=== PATIENT | female | born 1985 | race Caucasian/White ===

== ENCOUNTER 2016-11-04 14:27 | Emergency (ER) | payer OTHER ==
[~2016-11-04] VITALS: Ht 170.2 cm; Wt 75.0 kg
[2016-11-04 14:29] VITALS: BP 150/109; PULSE 83; RESP 16; TEMP 97.5; O2SAT 99
--- NOTE | 2016-11-04 14:34 | PD ---
HPI . 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 Patient tells me that in May she had a miscarriage and she was told this at another hospital in [place]. 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 She has a light period for the first week and describes it as spotting and then for the second week she has blood clots. She tells me she is going through 5-6 pads per day. Today she is currently bleeding and says she has been bleeding for the past 2 weeks now going on 3 weeks. She admits to some abdominal discomfort in her suprapubic area. She thinks that she may have products of conception retained within her and that this may be causing her bleeding. She thinks she may need a D&C. She has no other complaints. She denies any vaginal discharge other than blood products. She denies any fever or chills. PFSH Past Medical History ?: Unknown Social History Tobacco Use: Yes Allergies-Medications (Allergen,Severity, Reaction): Coded Allergies: No Known Allergies (Unverified , 11/04/16) Review of Systems General / Constitutional: No: Fever Eyes: No: Visual changes HENT: No: Headaches Cardiovascular: No: Chest Pain or Discomfort Respiratory: No: Shortness of Breath Gastrointestinal: Positive: Abdominal Pain (suprapubic ) Genitourinary: Positive: Vaginal Bleeding, No: Dysuria Musculoskeletal: No: Pain Skin: No Rash Neurologic: No: Weakness Psychiatric: No: Depression Endocrine: No: Polydipsia Hematologic/Lymphatic: No: Easy Bruising Physical Exam Narrative GENERAL: AAO x 3, no acute distress, Well-nourished, well-developed patient. SKIN: Warm and dry. No visible rashes or bruising. HEAD: Normocephalic and atraumatic. EYES: No scleral icterus. No injection or drainage. EOM intact, PERRLA ENT: No nasal drainage noted. Mucous membranes pink. Airway patent. NECK: Supple, trachea midline. No JVD. CARDIOVASCULAR: Regular rate and rhythm without murmurs, gallops, or rubs. RESPIRATORY: Breath sounds equal bilaterally. No accessory muscle use. No rhonchi or rales. GASTROINTESTINAL: Abdomen soft, non-tender, nondistended. EXTREMITIES: No cyanosis or edema. BACK: Nontender without obvious deformity. No CVA tenderness. 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 Data Data Last Documented VS Vital Signs Date Time Temp Pulse Resp B/P Pulse Ox O2 Delivery O2 Flow Rate FiO2 11/04/16 16:05 78 16 134/85 99 11/04/16 14:29 97.5 Orders Complete Blood Count With Diff (11/04/16 14:41) Basic Metabolic Panel (Bmp) (11/04/16 14:41) Ed Urine Pregnancytest Poc (11/04/16 14:41) Urinalysis - C+S If Indicated (11/04/16 15:34) Beta Hcg (Quant/Titer) (11/04/16 14:50) Us Pelvis (Ques Pr/Ect)W Trans (11/04/16 ) Labs Laboratory Tests Test 11/04/16 11/04/16 14:50 15:40 White Blood Count 13.2 TH/MM3 Red Blood Count 4.26 MIL/MM3 Hemoglobin 13.6 GM/DL Hematocrit 41.0 % Mean Corpuscular Volume 96.2 FL Mean Corpuscular Hemoglobin 31.8 PG Mean Corpuscular Hemoglobin 33.1 % Concent Red Cell Distribution Width 13.1 % Platelet Count 242 TH/MM3 Mean Platelet Volume 8.5 FL Neutrophils (%) (Auto) 71.2 % Lymphocytes (%) (Auto) 22.0 % Monocytes (%) (Auto) 5.9 % Eosinophils (%) (Auto) 0.6 % Basophils (%) (Auto) 0.3 % Neutrophils # (Auto) 9.4 TH/MM3 Lymphocytes # (Auto) 2.9 TH/MM3 Monocytes # (Auto) 0.8 TH/MM3 Eosinophils # (Auto) 0.1 TH/MM3 Basophils # (Auto) 0.0 TH/MM3 CBC Comment DIFF FINAL Differential Comment Sodium Level 142 MEQ/L Potassium Level 3.6 MEQ/L Chloride Level 109 MEQ/L Carbon Dioxide Level 26.2 MEQ/L Anion Gap 7 MEQ/L Blood Urea Nitrogen 14 MG/DL Creatinine 0.86 MG/DL Estimat Glomerular Filtration 78 ML/MIN Rate Random Glucose 109 MG/DL Calcium Level 8.4 MG/DL Human Chorionic Gonadotropin, 117 MIU/ML Quant Urine Color YELLOW Urine Turbidity CLEAR Urine pH 5.0 Urine Specific [place] 1.030 Urine Protein NEG mg/dL Urine Glucose (UA) NEG mg/dL Urine Ketones NEG mg/dL Urine Occult Blood NEG Urine Nitrite NEG Urine Bilirubin NEG Urine Urobilinogen LESS THAN 2.0 MG/DL Urine Leukocyte Esterase NEG Urine WBC 1 /hpf Urine Squamous Epithelial 2 /hpf Cells Urine Calcium Oxalate Crystals OCC /hpf Microscopic Urinalysis Comment CULT NOT INDICATED MDM Medical Decision Making Medical Screen Exam Complete: Yes Emergency Medical Condition: Yes Medical Record Reviewed: Yes Differential Diagnosis missed , threatened , ectopic , retained products of conception Narrative Course 31-year-old female here with complaints of intermittent vaginal bleeding consistently for the past several months. Labs have been drawn and bedside test was positive. I will go ahead and check a beta-hCG. Beta hCG was at 100+, therefore ultrasound was ordered. US appreciated and no evidence of gestational sac. It may be too early. Recommend f/u Beta HCG in 2 days. Last Impressions Pelvis Ultrasound 11/04/16 0000 Signed Impressions: Service Date/Time: Friday, November 04, 2016 17:44 - CONCLUSION: 1. No gestational sac identified in the uterus. Gestational sac may be too small to visualize on ultrasound. 2. 2.2 cm simple right ovarian cyst. Shailesh Isaacs MD Laboratory Tests Test 11/04/16 11/04/16 14:50 15:40 White Blood Count 13.2 TH/MM3 Red Blood Count 4.26 MIL/MM3 Hemoglobin 13.6 GM/DL Hematocrit 41.0 % Mean Corpuscular Volume 96.2 FL Mean Corpuscular Hemoglobin 31.8 PG Mean Corpuscular Hemoglobin 33.1 % Concent Red Cell Distribution Width 13.1 % Platelet Count 242 TH/MM3 Mean Platelet Volume 8.5 FL Neutrophils (%) (Auto) 71.2 % Lymphocytes (%) (Auto) 22.0 % Monocytes (%) (Auto) 5.9 % Eosinophils (%) (Auto) 0.6 % Basophils (%) (Auto) 0.3 % Neutrophils # (Auto) 9.4 TH/MM3 Lymphocytes # (Auto) 2.9 TH/MM3 Monocytes # (Auto) 0.8 TH/MM3 Eosinophils # (Auto) 0.1 TH/MM3 Basophils # (Auto) 0.0 TH/MM3 CBC Comment DIFF FINAL Differential Comment Sodium Level 142 MEQ/L Potassium Level 3.6 MEQ/L Chloride Level 109 MEQ/L Carbon Dioxide Level 26.2 MEQ/L Anion Gap 7 MEQ/L Blood Urea Nitrogen 14 MG/DL Creatinine 0.86 MG/DL Estimat Glomerular Filtration 78 ML/MIN Rate Random Glucose 109 MG/DL Calcium Level 8.4 MG/DL Human Chorionic Gonadotropin, 117 MIU/ML Quant Urine Color YELLOW Urine Turbidity CLEAR Urine pH 5.0 Urine Specific [place] 1.030 Urine Protein NEG mg/dL Urine Glucose (UA) NEG mg/dL Urine Ketones NEG mg/dL Urine Occult Blood NEG Urine Nitrite NEG Urine Bilirubin NEG Urine Urobilinogen LESS THAN 2.0 MG/DL Urine Leukocyte Esterase NEG Urine WBC 1 /hpf Urine Squamous Epithelial 2 /hpf Cells Urine Calcium Oxalate Crystals OCC /hpf Microscopic Urinalysis Comment CULT NOT INDICATED Discussed with patient. Recommend return to the emergency department in 2 days for recheck of her beta hCG levels. Advised if any worsening of her condition go To the nearest emergency department. Patient verbalized understanding of instructions, questions were answered, and thanked me for their care. I advised them if their condition worsens, please return to the nearest emergency room for further care. Diagnosis Primary Impression: Vaginal bleeding Additional Impression: Qualified Code: Z3A.49 - More than 42 weeks gestation of Additional Instructions: Please return to emergency department in 2 days for recheck of her beta hCG levels. If you develop any worsening of your condition, go to the nearest emergency department. Med/Other Pt SpecificInfo: No Change to Meds Disposition: 01 DISCHARGE HOME Condition: Stable Bridgette Vasquez Nov 04, 2016 14:34
[2016-11-04 15:15] LABS: AUTOMATED NEUTROPHIL # 9.4 TH/MM3 (1.8-7.7); BASOPHIL % 0.3 % (0.0-2.0); EOSINOPHIL # 0.1 TH/MM3 (0-0.4); EOSINOPHIL % 0.6 % (0.0-4.0); HEMO FLAGS DIFF FINAL; LYMPHOCYTE # 2.9 TH/MM3 (1.0-4.8); MEAN CELL VOLUME 96.2 FL (80.0-100.0); MEAN CORPUSCULAR HEMOGLOBIN 31.8 PG (27.0-34.0); MEAN CORPUSCULAR HGB CONC 33.1 % (32.0-36.0); MONO % 5.9 % (0.0-8.0); NEUT % 71.2 % (16.0-70.0); PLATELET COUNT 242 TH/MM3 (150-450); RED BLOOD COUNT 4.26 MIL/MM3 (4.00-5.30); RED CELL DISTRIBUTION WIDTH 13.1 % (11.6-17.2); WHITE BLOOD COUNT 13.2 TH/MM3 (4.0-11.0)
[2016-11-04 15:37] LABS: BICARBONATE 26.2 MEQ/L (21.0-32.0); POTASSIUM 3.6 MEQ/L (3.5-5.1)
[2016-11-04 16:05] VITALS: BP 134/85; PULSE 78; RESP 16; O2SAT 99
[2016-11-04 16:29] LABS: BLOOD, URINE NEG (NEG); CALCIUM OXALATE CRYSTALS,URINE OCC /hpf; COMMENT (UR) CULT NOT INDICATED; CULTURE IF INDICATED CULT NOT INDICATED; GLUCOSE,URINE NEG (NEG); KETONE, URINE NEG (NEG); NITRITE,URINE NEG (NEG); SQUAMOUS EPITHELIAL CELL URINE 2 /hpf (0-5); URINE COLOR YELLOW (YELLW/STRAW)
--- NOTE | 2016-11-04 18:27 | RADRPT ---
EXAM DATE/TIME: 11/04/2016 17:44 [facility] COMPARISON: No previous studies available for comparison. INDICATIONS : Pelvic bleeding. LAB(S): Beta-hC MEDICAL HISTORY : . SURGICAL HISTORY : section. ENCOUNTER: Initial ACUITY: 2 weeks PAIN SCORE: 4/10 LOCATION: Bilateral pelvis MEASUREMENTS: UTERUS: 9.2 x 5.4 x 5.0 cm ENDOMETRIAL STRIPE: 6 mm RIGHT OVARY: 2.7 x 3.7 x 2.7 cm LEFT OVARY: 2.4 x 2.5 x 2.0 cm FREE FLUID: No FINDINGS: UTERUS: No intrauterine gestational sac identified. 9 mm nabothian cysts in the cervix and 6 mm nabothian cys ts in the cervix. RIGHT OVARY: 2.2 cm simple cyst in the right ovary. LEFT OVARY: Ovary contains no mass or significant cystic lesion. MISCELLANEOUS: No free fluid. CONCLUSION: 1. No gestational sac identified in the uterus. Gestational sac may be too small to visualize on ultr asound. 2. 2.2 cm simple right ovarian cyst. Shailesh Isaacs MD on November 04, 2016 at 18:22 Board Certified Radiologist. This report was verified electronically.
== END 2016-11-04 19:32 | disposition home or self-care (01) ==
LOC: NEPD 14:27
DX: O20.9 Hemorrhage in early pregnancy, unspecified (principal); Z3A.00 Weeks of gestation of pregnancy not specified; Z72.0 Tobacco use
CPT/HCPCS: 76700; 76817; 80048; 81001; 84702; 84703; 85025; 99284

== ENCOUNTER 2016-11-07 15:22 | Emergency (ER) | payer OTHER ==
[~2016-11-07] VITALS: Ht 170.2 cm; Wt 80.0 kg
[2016-11-07 15:24] VITALS: BP 153/84; PULSE 91; RESP 16; TEMP 98.7; O2SAT 99
[2016-11-07 17:16] VITALS: BP 120/72; PULSE 70; RESP 14; TEMP 98.2; O2SAT 97
--- NOTE | 2016-11-07 17:25 | PD ---
HPI Chief Complaint: Related Problem Time Seen by Provider: 17:20 Travel History International Travel<30 days: No Contact w/Intl Traveler<30days: No Traveled to known affect area: No History of Present Illness HPI 31-year-old female presents the emergency department with history of recent diagnosis of with associated vaginal bleeding. She was seen on the , and had an hCG done at that time. Patient continues to have some vaginal bleeding which she describes as a normal period. Some mild cramping but otherwise no complaints. Her repeat hCG. Her hCG on the was 117. Patient has no known drug allergies. [facility] Past Medical History Medical History: Denies Significant Hx ?: LMP: 10/24/16 : 8 Para: 3 Miscarriage: 4 : 1 Past Surgical History Section: Yes (x2) Social History Alcohol Use: Yes (weekends) Tobacco Use: Yes (LESS THAN HALF A PACK) Substance Use: No Allergies-Medications (Allergen,Severity, Reaction): Coded Allergies: No Known Allergies (Unverified , 11/07/16) Reported Meds & Prescriptions Reported Meds & Active Scripts Active No Active Prescriptions or Reported Medications Review of Systems Except as stated in HPI: all other systems reviewed are Neg General / Constitutional: No: Fever Eyes: No: Visual changes HENT: No: Headaches Cardiovascular: No: Chest Pain or Discomfort Respiratory: No: Shortness of Breath Gastrointestinal: No: Abdominal Pain Genitourinary: Positive: Vaginal Bleeding, No: Dysuria Musculoskeletal: No: Pain Skin: No Rash Neurologic: No: Weakness Psychiatric: No: Depression Endocrine: No: Polydipsia Hematologic/Lymphatic: No: Easy Bruising Physical Exam Narrative GENERAL: Patient is in no acute distress. SKIN: Warm and dry. Normal color. Normal turgor. HEAD: Atraumatic. Normocephalic. EYES: Pupils equal and round. No scleral icterus. No injection or drainage. ENT: No nasal bleeding or discharge. Mucous membranes pink and moist. NECK: Trachea midline. Supple and nontender. CARDIOVASCULAR: Regular rate and rhythm. RESPIRATORY: No accessory muscle use. Clear to auscultation. Breath sounds equal bilaterally. GASTROINTESTINAL: Abdomen soft, non-tender, nondistended. Hepatic and splenic margins not palpable. No CVA tenderness. MUSCULOSKELETAL: Extremities without clubbing, cyanosis, or edema. No obvious deformities. NEUROLOGICAL: Awake and alert. No obvious cranial nerve deficits. Motor grossly within normal limits. Five out of 5 muscle strength in the arms and legs. Normal speech. PSYCHIATRIC: Appropriate mood and affect; insight and judgment normal. Data Data Last Documented VS Vital Signs Date Time Temp Pulse Resp B/P Pulse Ox O2 Delivery O2 Flow Rate FiO2 11/07/16 17:16 98.2 70 14 120/72 97 Orders Beta Hcg (Quant/Titer) (11/07/16 17:18) Labs Laboratory Tests Test 11/07/16 17:25 Human Chorionic Gonadotropin, 73 MIU/ML Quant [facility] Medical Decision Making Medical Screen Exam Complete: Yes Emergency Medical Condition: Yes Medical Record Reviewed: Yes Differential Diagnosis Threatened miscarriage. Vaginal bleeding with . Need for serum hCG. Narrative Course Patient is medically stable at time of exam. Repeat serum hCG is ordered. Repeat serum hCG is 73 which is down from 117, 2 days ago. Patient is to follow-up with the limits as discussed. Patient should return the emergency Department with worsening bleeding as discussed. Diagnosis Primary Impression: Miscarriage, threatened, early Referrals: [facility] Patient Instructions: General Instructions, Spontaneous Miscarriage (ED) Med/Other Pt SpecificInfo: No Meds Exist/No RX given Scripts No Active Prescriptions or Reported Meds Disposition: 01 DISCHARGE HOME Condition: Stable Alhaji Etienne Nov 07, 2016 17:25
[2016-11-07 18:06] LABS: BETA HCG QUANT 73 MIU/ML (0-5)
== END 2016-11-07 19:54 | disposition home or self-care (01) ==
LOC: NEPD 15:22
DX: O03.9 Complete or unspecified spontaneous abortion without complication (principal)
CPT/HCPCS: 84702; 99283